=== PATIENT | male | born 1975 | race Caucasian/White ===

== ENCOUNTER 2022-01-17 10:06 | Emergency (ER) | payer SELFPAY ==
[~2022-01-17] VITALS: Ht 180.3 cm; Wt 99.8 kg
--- NOTE | 2022-01-17 10:35 | NUR ---
BIB WHEELCHAIR TO ER BED 10
[2022-01-17 10:36] VITALS: BP 102/76
--- NOTE | 2022-01-17 10:45 | NUR ---
PT C/O N/V, RESTLESSNESS AFTER TAKING GIRLFRIENDS MEDICATION LYBALI ON ACCIDENT. PT USES FENTANYL DAILY AFTER USING LYBALI BEGAN TO GO INTO WITHDRAWL AND USED APPRO X1 GM OF FENTANYL AROUND 0200. PT ALERT ORIENTED WITH PERIODS OF DISORIENTATION. NSR ON MONITOR. IV INSERTED TO LEFT HAND #[id number]. IV FLUIDS INFUSING PER ORDER.
[2022-01-17] MEDS: NACL 0.9% 1,000 ML IV ONE (10:58)
[2022-01-17] MEDS: ONDANSETRON 4 MG/2 ML VIAL IVP ONE (11:29)
[2022-01-17 11:30] LABS: BASOPHILS % (AUTO) 0.4 % (0.0-2.0); HEMATOCRIT 47.2 % (36-52); HEMOGLOBIN 16.5 g/dL (12.0-18.0); LYMPHOCYTES # (AUTO) 1.6 K/uL (2.0-11.5); LYMPHOCYTES % (AUTO) 13.5 % (20.5-51.1); MEAN CORPUSCULAR HEMOGLOBIN 30 pg (27-31); MEAN CORPUSCULAR HGB CONC 35 g/dL (33-37); MEAN CORPUSCULAR VOLUME 84.9 fL (80-94); MONOCYTES # (AUTO) 0.4 K/uL (0.8-1.0); MONOCYTES % (AUTO) 3.1 % (1.7-9.3); NEUTROPHILS # (AUTO) 9.8 K/uL (1.8-7.7); PLATELET COUNT (AUTO) 240 K/uL (140-450); RED BLOOD CELL COUNT(AUTO) 5.57 MIL/uL (4.20-6.10); RED CELL DISTRIBUTION WIDTH 14.2 % (11.6-13.7); WHITE BLOOD COUNT (AUTO) 11.8 K/uL (4.8-10.8)
[2022-01-17 12:08] LABS: ALBUMIN 4.1 g/dL (3.4-5.0); ANION GAP 15.4 (8-16); ASPARTATE AMINOTRANSFERASE 46 U/L (15-37); CARBON DIOXIDE 25.2 mmol/L (21-32); CHLORIDE 103 mmol/L (98-107); CREATININE 0.9 mg/dL (0.6-1.3); GFR ARICAN-AMERICAN 118 mL/min (>90); GLUCOSE 142 mg/dL (74-106); POTASSIUM 3.6 mmol/L (3.5-5.1); SODIUM SERUM 140 mmol/L (136-145); TOTAL BILIRUBIN 0.8 mg/dL (0.0-1.0); UREA NITROGEN, BLOOD 19 mg/dL (7-18)
--- NOTE | 2022-01-17 12:38 | NUR ---
PATIENTS GIRLFRIEND CALLED FOR UPDATE ON PATIENT. NUMBER TO REACH.
[2022-01-17 13:15] LABS: SALICYLATE < 2.8 mg/dL (2.8-20.0)
[2022-01-17 13:16] LABS: ACETAMINOPHEN < 0.5 ug/ml (10-30)
[2022-01-17] MEDS ORDERED: NALO4SPR NS (14:00)
[2022-01-17 14:41] VITALS: BP 122/80
--- NOTE | 2022-01-17 14:42 | NUR ---
Patient discharged with v/s stable. Written and verbal after care instructions given and explained. Patient verbalized understanding. Ambulatory with steady gait. All questions addressed prior to discharge. Advised to follow up with PMD.
== END 2022-01-17 14:42 | disposition home or self-care (01) ==
LOC: MED 10:06
DX: T40.411A Poisoning by fentanyl or fentanyl analogs, accidental (unintentional), initial encounter (principal); R11.2 Nausea with vomiting, unspecified; R53.83 Other fatigue; Z79.899 Other long term (current) drug therapy; Y92.89 Other specified places as the place of occurrence of the external cause
CPT/HCPCS: 80053; 85025; 93005; 96361; 96374; 99284; G0480; G0482; J2405; J7030